=== PATIENT | male | born 1930 | race Caucasian/White ===

== ENCOUNTER 2017-07-17 16:40 | Inpatient (IN) | payer MEDICARE ==
[~2017-07-17] VITALS: Ht 182.8 cm; Wt 69.9 kg
--- NOTE | ~2017-07-17 | DS ---
[place], [place] DISCHARGE SUMMARY [id number] UNIT #: [id number] ROOM: 317 DOCTOR: JUSTA CARRANZA MD BIRTHDATE: [birth year] DOS: 07/20/2017 CHIEF COMPLAINT: The patient was nonverbal upon admission, but #1 with his index finger. HISTORY OF PRESENT ILLNESS: This is an 87-year-old white male who is a resident of [facility]. The patient had been sent to [facility] for medical clearance for possible psychiatric admission due to a significant mental status change. The patient had become increasingly bizarre while at [facility]. He has been trying to eat soap. He is trying to make himself vomit and then also manually trying to force himself to have a bowel movement. When attempted to be redirected, the patient became verbally and physically combative with staff and resistive to care. The patient then ultimately was sent to [facility] for medical clearance where he was medically cleared and ultimately sent to the senior behavioral healthcare unit at [facility]. The patient has had a significant decline in mental status. He has been refusing to eat or drink and has not been compliant with all aspects of care including medication. He is admitted to the behavioral healthcare unit to further rule out organic factors, attempt to stabilize on medication, returning to the least restrictive environment when psychiatrically stable. PAST MEDICAL HISTORY: Remarkable for coronary artery disease, GERD, hypertension, migraine headaches, osteoarthritis, Parkinson's disease, spinal stenosis and a history of Alzheimer dementia. SUMMARY OF HOSPITAL COURSE: The patient was admitted to the unit where he was switched from Aricept to Exelon 4.6 mg a day and later increased to 9.5 mg a day. Attempts to start him on Depakote and Remeron to combat his mood issues were met with difficulty first because he was refusing medications and then secondly the patient did not pass a swallow evaluation and was made n.p.o. Family was contacted as well as the patient who strongly verbalized he did not want a PEG tube as did family state that they no longer wanted extreme measures taken. Because the patient was n.p.o. and could not take any oral medication, it was felt at this point that a return to the [facility] was warranted. The patient did not exhibit any of the bizarre behavior that was reported upon admission, in fact, he was rather docile and nonverbal for the most part of his stay. MENTAL STATUS AT DISCHARGE: The patient was alert and oriented to self. He remained nonverbal. He did make eye contact when you called his name, but did not make any attempt to verbalize. This though, however, was episodic because nurses did report that when family was in, he was much more conversant and clearly verbalized a wish not to have a PEG tube placed. There was no agitation or aggression upon discharge. FINAL DIAGNOSIS ON DISCHARGE: Major depression, recurrent, severe. PLAN: The patient is to be discharged to [facility] or to an alternative long-term care placement. Depending on his placement, I will follow him there. His prescription for Exelon patch was printed and will be sent with him. [place], [place] DISCHARGE SUMMARY NAME: JUSTA CAPPS UNIT #: [id number] ROOM: 317 DOCTOR: JUSTA CARRANZA MD BIRTHDATE: [birth year] JUSTA CARRANZA MD CM:DISCHARG JUSTA CARRANZA MD 07/20/1757 interface
--- NOTE | ~2017-07-17 | PR ---
[place], [place] PROGRESS NOTE NAME: JUSTA CAPPS UNIT #: [id number] ROOM: 317 DOCTOR: JUSTA CARRANZA MD BIRTHDATE: [birth year] DOS: 07/19/2017 CHIEF COMPLAINT: The patient was nonverbal. SUMMARY OF THE VISIT: The patient was sitting in the dining area in a Estrella chair waiting for his breakfast. I attempted again on multiple occasions to engage him in conversation. He did make eye contact with me, but did not make any effort to verbalize any type of response whatsoever. He was pleasant, however, and did not exhibit any agitation or aggression. Nurses' report episodic noncompliant with all aspects of care. He picks and chooses what medicines to take as well as when to eat and when to drink, but overall has not been very compliant whatsoever. MENTAL STATUS: It is limited due to his lack of participation. PLAN: I will increase his Exelon patch from 4.6 to 9.5 mg a day, hoping to impact positively on ADLs, behavior and cognition. Continue to attempt to engage in individual and maher milieu activity with the plan to return to the least restrictive environment when psychiatrically stable. JUSTA CARRANZA MD CM:PNTRANS [id number] JUSTA CARRANZA MD 07/19/17 1020 interface
--- NOTE | ~2017-07-17 | WRIGHTHP ---
[place], [place] PATIENT HISTORY AND PHYSICAL EXAM [id number] #: [id number] ROOM: 317 DOCTOR: JUSTA CARRANZA MD BIRTHDATE: [birth year] DOS: 07/18/2017 CHIEF COMPLAINT: The patient was nonverbal, but motioned the #1 with his index finger. HISTORY OF PRESENT ILLNESS: This is an 87-year-old male who is a resident of [facility]. The patient has been having increased bizarre behaviors that necessitated him being sent to [facility] for medical clearance. While at [facility], the patient has been very bizarre. He has been trying to eat soap. He has been trying to make himself vomit and then manually make himself have a bowel movement. When attempted to be redirected, the patient has become verbally and physically combative with staff and resistive to care. The patient was sent to [facility] for medical clearance to be admitted to a [facility] unit. While at [facility], the patient was found to be hypertensive as well as significantly tachycardic. The patient had his metoprolol increased from 25 mg twice a day to 50 mg twice a day. He was also noted to have a right seventh anterior lateral rib fracture and Percocet was prescribed. He was refusing food while at [facility] and his diet was changed. The hospitalist there did feel that he was medically stable, but continued to exhibit significant psychiatric symptomatology that necessitated him being transferred to the Senior Behavioral Unit for further evaluation and treatment. PAST MEDICAL HISTORY: Remarkable for coronary artery disease, GERD, hypertension, migraine headaches, osteoarthritis, Parkinson's disease, spinal stenosis and a history of Alzheimer's dementia. MENTAL STATUS: My mental status is limited. The patient was nonverbal. At most, he continued to gesture the #1 with his index finger. I attempted on multiple occasions to engage him, but with no success. Nurses report he is very resistive to care and is refusing most if not all of his medications. DIAGNOSIS: Brief psychotic disorder, rule out major depression, rule out intermittent explosive disorder. PLAN: I will switch him over from Aricept to Exelon patch 4.6 mg daily. Plan to rapidly titrate the patch. At this point, I am hesitant to utilize any antipsychotic given the severity of his Parkinson's. We will continue to see if we can get him to become more compliant and then utilize Depakote and/or an antidepressant to try to change his behavior. We will attempt at best to engage him in individual and maher milieu activity with the plan to return to [facility] or to an alternative placement if necessary. [place], [place] PATIENT HISTORY AND PHYSICAL EXAM NAME: JUSTA CAPPS UNIT #: [id number] ROOM: 317 DOCTOR: JUSTA CARRANZA MD BIRTHDATE: [birth year] JUSTA CARRANZA MD CM:HISPHYS:PATIENT HISTORY AND PHYSICAL EXAMINATION [id number] JUSTA CARRANZA MD 07/18/17 1050 interface
[~2017-07-17 16:40] MED LIST: ASPIRIN CHEWABL81 MG PO; ATENOLOL50 M1 PO; CIALIS20 MG PO; CYMBALTA20 M1 PO; LISINOPRIL10 M1 PO; NEXIUM 24HR20 M2 PO; SIMVASTATIN40 MG PO; Sinemet Cr 25-11 TAB PO
[2017-07-17] MEDS ORDERED: LIPITOR10 MG PO (17:28)
[2017-07-17] MEDS ORDERED: ARICEPT5 M1 PO (17:29)
[2017-07-17] MEDS ORDERED: DULOXETINE HCL20 MG PO (17:30)
[2017-07-17] MEDS ORDERED: FLUDROCORTISON0.1 MG PO (17:33)
[2017-07-17] MEDS ORDERED: HALOPERIDOL2 M1 PO (17:34)
[2017-07-17] MEDS ORDERED: ATIVAN1 MG PO (17:35)
[2017-07-17] MEDS ORDERED: LOPRESSOR50 M1 PO (17:37)
[2017-07-17] MEDS ORDERED: LAMOTRIGINE ER25 MG PO (17:41)
[2017-07-17] MEDS ORDERED: MELATONIN5 M1 PO (17:42)
[2017-07-17] MEDS ORDERED: PRILOSEC20 M1 PO (17:43)
[2017-07-17] MEDS ORDERED: PERCOCET 5-3251 EACH PO (17:44)
[2017-07-17] MEDS ORDERED: K-TAB20 MEQ PO (17:46)
[2017-07-17 20:00] VITALS: BP 151/77
[2017-07-17 20:08] LABS: BASO % 0.3 % (0.0-1.0); EOS % 0.3 % (1.0-4.0); LYMPH # 1.8 10*3/uL (1.3-4.4); LYMPH % 18.7 % (27.0-41.0); MEAN CELL VOLUME 91.5 fl (80.0-94.0); MEAN CORPUSCULAR HGB 30.5 pg (27.0-31.0); MEAN CORPUSCULAR HGB CONC 33.3 g/dl (33.0-37.0); MONO # 1.1 10*3/uL (0.1-1.0); MONO % 11.3 % (3.0-9.0); NEUT # 6.5 10*3/uL (2.3-7.9); NEUT % 68.9 % (47.0-73.0); PLATELET COUNT AUTOMATED 200 10*3/uL (130-400); RED BLOOD COUNT 4.26 10*6/uL (4.50-5.90); WHITE BLOOD COUNT 9.5 10*3/uL (4.8-10.8)
[2017-07-17 20:23] LABS: ALBUMIN 3.1 gm/dl (3.1-4.5); ALKALINE PHOSPHATASE 105 U/L (45-117); BUN 11 mg/dl (7-24); CHLORIDE 109 mmol/L (98-107); CREATININE 0.87 mg/dL (0.70-1.30); PHOSPHOROUS 1.9 mg/dL (2.5-4.9); SGOT/AST 26 IU/L (3-35); SGPT/ALT 8 U/L (12-78); SODIUM 143 mmol/L (136-145); TOTAL PROTEIN 6.4 gm/dL (6.4-8.2)
[2017-07-18 07:27] LABS: BASO % 0.4 % (0.0-1.0); EOS % 0.2 % (1.0-4.0); HEMATOCRIT 41.9 % (42.0-52.0); HEMOGLOBIN 14.3 g/dl (14.0-18.0); LYMPH # 1.9 10*3/uL (1.3-4.4); LYMPH % 19.7 % (27.0-41.0); MEAN CELL VOLUME 92.1 fl (80.0-94.0); MEAN CORPUSCULAR HGB 31.4 pg (27.0-31.0); MEAN CORPUSCULAR HGB CONC 34.1 g/dl (33.0-37.0); MEAN PLATELET VOLUME 9.1 fl (9.6-12.3); MONO # 1.1 10*3/uL (0.1-1.0); MONO % 11.4 % (3.0-9.0); NEUT # 6.7 10*3/uL (2.3-7.9); NEUT % 67.7 % (47.0-73.0); PLATELET COUNT AUTOMATED 231 10*3/uL (130-400); RED BLOOD COUNT 4.55 10*6/uL (4.50-5.90); RED CELL DISTRI WIDTH 14.8 % (0-14.5); WHITE BLOOD COUNT 9.9 10*3/uL (4.8-10.8)
[2017-07-18 07:56] LABS: ALBUMIN 3.3 gm/dl (3.1-4.5); BUN 11 mg/dl (7-24); CHLORIDE 104 mmol/L (98-107); CHOLESTEROL 109 mg/dL (<200); CREATININE 0.94 mg/dL (0.70-1.30); POTASSIUM 3.3 mmol/L (3.5-5.1); SGOT/AST 27 IU/L (3-35); SGPT/ALT 17 U/L (12-78); SODIUM 141 mmol/L (136-145); TOTAL PROTEIN 7.1 gm/dL (6.4-8.2); TRIGLYCERIDES 140 mg/dl (<150); VLDL CHOLESTEROL 28 mg/dL (6-40)
[2017-07-18 08:06] LABS: ALKALINE PHOSPHATASE 117 U/L (45-117); HDL CHOLESTEROL 44 mg/dl (40-60); LDL CHOLESTEROL 37 mg/dL (9-159); THYROID STIM HORMONE (HS) 0.325 uIU/ml (0.358-4.75)
[2017-07-18 08:27] VITALS: BP 152/86
[2017-07-18 09:09] LABS: VITAMIN D, 25-HYDROXY 34.4 ng/mL (30-100)
[2017-07-18 20:00] VITALS: BP 138/88
[2017-07-19 06:00] LABS: BUN 17 mg/dl (7-24); CHLORIDE 107 mmol/L (98-107); PHOSPHOROUS 2.9 mg/dL (2.5-4.9); POTASSIUM 3.3 mmol/L (3.5-5.1); SODIUM 143 mmol/L (136-145)
[2017-07-19 06:03] LABS: FREE T4 1.24 ng/dl (0.76-1.46)
[2017-07-19 08:02] VITALS: BP 143/76
[2017-07-19 18:55] LABS: BILIRUBIN 2+ (NEGATIVE); BLOOD TRACE-LYSED (NEGATIVE); CLARITY SL CLOUDY (CLEAR); COLOR YELLOW (YELLOW); GLUCOSE NEGATIVE (NEGATIVE); KETONE 1+ (NEGATIVE); LEUKO ESTERASE NEGATIVE (NEGATIVE); NITRITE NEGATIVE (NEGATIVE); SPECIFIC GRAVITY >= 1.030 (1.005-1.030)
[2017-07-19 19:04] LABS: BACTERIA TRACE; HYALINE CAST TNTC
[2017-07-19 19:05] LABS: MUCOUS 2+; RBC 16-20 rbc/hpf (0-2)
[2017-07-20 07:51] VITALS: BP 158/96
[2017-07-20] MEDS ORDERED: RIVASTIGMINE1 EAC1 T (09:32)
== END 2017-07-20 17:48 | disposition other institution (70) | DRG 885 ==
LOC: 3N 16:40
PROVIDERS: Internal Medicine; Internal Medicine Nephrology; Psychiatry & Neurology Psychiatry
DX: F33.3 Major depressive disorder, recurrent, severe with psychotic symptoms (principal); E87.8 Other disorders of electrolyte and fluid balance, not elsewhere classified; G20 Parkinson's disease; E83.39 Other disorders of phosphorus metabolism; E83.42 Hypomagnesemia; D64.9 Anemia, unspecified; S22.31XS Fracture of one rib, right side, sequela; F23 Brief psychotic disorder; G30.9 Alzheimer's disease, unspecified; F02.80 Dementia in other diseases classified elsewhere, unspecified severity, without behavioral disturbance, psychotic disturbance, mood disturbance, and anxiety; D72.810 Lymphocytopenia; G43.909 Migraine, unspecified, not intractable, without status migrainosus; I10 Essential (primary) hypertension; I25.10 Atherosclerotic heart disease of native coronary artery without angina pectoris; M48.00 Spinal stenosis, site unspecified; M15.9 Polyosteoarthritis, unspecified; K21.9 Gastro-esophageal reflux disease without esophagitis; E87.6 Hypokalemia; Z96.659 Presence of unspecified artificial knee joint; Z90.49 Acquired absence of other specified parts of digestive tract; Z98.49 Cataract extraction status, unspecified eye; Z79.899 Other long term (current) drug therapy; Z79.82 Long term (current) use of aspirin